=== PATIENT | male | born 1990 | race Caucasian/White ===

== ENCOUNTER 2019-01-06 13:48 | Emergency (ER) | payer BC, OTHER ==
--- NOTE | 2019-01-06 14:32 | ER ---
Nurse's Notes [facility] Name: Kirk Rockwell Age: 28 yrs Sex: Male : 1990 Arrival Date: 01/06/2019 Time: 13:48 Bed 16 Private MD: Diagnosis: Unspecified internal derangement of right knee-acl;Effusion, right knee Presentation: 01/06 13:51 Presenting complaint: Patient states: I was running and felt something in my Right knee la1 pop, I am in excruciating pain and cant walk on it now. Transition of care: patient was not received from another setting of care. Onset of symptoms was January 06, 2019. Risk Assessment: Do you want to hurt yourself or someone else? Patient reports no desire to harm self or others. Initial Sepsis Screen: Does the patient meet any 2 criteria? No. Patient's initial sepsis screen is negative. Does the patient have a suspected source of infection? No. Patient's initial sepsis screen is negative. Care prior to arrival: None. 13:51 Method Of Arrival: Wheelchair la1 13:51 Acuity: STEVEN 4 la1 Historical: - Allergies: 13:52 No Known Allergies; la1 - PMHx: 13:52 None; la1 - Immunization history:: Adult Immunizations up to date. - Social history:: Smoking status: Patient/guardian denies using tobacco. - Ebola Screening: : No symptoms or risks identified at this time. - Family history:: not pertinent. Screenin:37 Abuse screen: Denies threats or abuse. Denies injuries from another. Nutritional aj screening: No deficits noted. Tuberculosis screening: No symptoms or risk factors identified. Fall Risk None identified. Assessment: 14:37 General: Appears in no apparent distress. uncomfortable, Behavior is calm, cooperative, aj appropriate for age. Pain: Complains of pain in right knee. Neuro: Level of Consciousness is awake, alert, obeys commands, Oriented to person, place, time, situation, Appropriate for age. Respiratory: Airway is patent Respiratory effort is even, unlabored, Respiratory pattern is regular, symmetrical. Derm: Skin is intact, is healthy with good turgor, Skin is pink, warm \T\ dry. normal. Musculoskeletal: Reports pain in right knee. Vital Signs: 13:52 BP 127 / 72; Pulse 117; Resp 16; Temp 97.6; Pulse Ox 98% on R/A; Weight 86.18 kg; la1 Height 5 ft. 6 in. (167.64 cm); 15:41 BP 124 / 79; Pulse 81; Resp 16; Pulse Ox 99% on R/A; aj 13:52 Body Mass Index 30.67 (86.18 kg, 167.64 cm) la1 ED Course: 13:48 Patient arrived in ED. mr 13:52 Triage completed. la1 13:52 Arm band placed on left wrist. la1 13:54 Red Gilman MD is Attending Physician. andria 14:31 Miguel Short MD is Referral Physician. andria 14:35 Veronika You, RN is Primary Nurse. aj 14:37 Patient has correct armband on for positive identification. aj 14:37 No provider procedures requiring assistance completed. Patient did not have IV access aj during this emergency room visit. 15:11 Knee Right 3 View XRAY In Process Unspecified. EDMS Administered Medications: 14:36 Drug: Demerol 50 mg Route: IM; Site: left deltoid; aj 14:36 Drug: Phenergan 25 mg Route: IM; Site: left gluteus; aj 14:36 Drug: TORadol 60 mg Route: IM; Site: right gluteus; aj Outcome: 14:31 Discharge ordered by . andria 15:41 Discharged to home ambulatory, with crutches. aj 15:41 Condition: good 15:41 Discharge instructions given to patient, family, Instructed on discharge instructions, follow up and referral plans. medication usage, Demonstrated understanding of instructions, follow-up care, medications, Prescriptions given X 2. 15:42 Patient left the ED. aj Signatures: Dispatcher [employer] EDMS Veronika You, RN Red Ghosh MD MD cha Rivera, Mary mr Attema, Lee, RN RN la1
--- NOTE | 2019-01-06 14:32 | EDPHYS ---
Physician Documentation [facility] Name: Kirk Rockwell Age: 28 yrs Sex: Male : 1990 Arrival Date: 01/06/2019 Time: 13:48 Bed 16 Private MD: ED Physician Red Gilman HPI: 01/06 14:12 This 28 yrs old Male presents to ER via Wheelchair with complaints of Knee andria Pain. 14:12 The patient presents with decreased range of motion, pain, swelling, tenderness. The andria complaints affect the right knee. Context: The problem was sustained outdoors. Onset: The symptoms/episode began/occurred just prior to arrival. Modifying factors: The symptoms are alleviated by elevating leg, remaining still, the symptoms are aggravated by movement, weight bearing. Associated signs and symptoms: The patient has no apparent associated signs or symptoms. Severity of symptoms: At their worst the symptoms were moderate, in the emergency department the symptoms are unchanged. Historical: - Allergies: 13:52 No Known Allergies; la1 - PMHx: 13:52 None; la1 - Immunization history:: Adult Immunizations up to date. - Social history:: Smoking status: Patient/guardian denies using tobacco. - Ebola Screening: : No symptoms or risks identified at this time. - Family history:: not pertinent. ROS: 14:12 Constitutional: Negative for fever, chills, and weight loss, Eyes: Negative for injury, andria pain, redness, and discharge, ENT: Negative for injury, pain, and discharge, Neck: Negative for injury, pain, and swelling, Cardiovascular: Negative for chest pain, palpitations, and edema, Respiratory: Negative for shortness of breath, cough, wheezing, and pleuritic chest pain, Abdomen/GI: Negative for abdominal pain, nausea, vomiting, diarrhea, and constipation, Back: Negative for injury and pain, : Negative for injury, bleeding, discharge, and swelling, Skin: Negative for injury, rash, and discoloration, Neuro: Negative for headache, weakness, numbness, tingling, and seizure, Psych: Negative for depression, anxiety, suicide ideation, homicidal ideation, and hallucinations, Allergy/Immunology: Negative for hives, rash, and allergies, Endocrine: Negative for neck swelling, polydipsia, polyuria, polyphagia, and marked weight changes, Hematologic/Lymphatic: Negative for swollen nodes, abnormal bleeding, and unusual bruising. 14:12 MS/extremity: Positive for decreased range of motion, pain, swelling, tenderness, of the right knee. Exam: 14:12 Constitutional: This is a well developed, well nourished patient who is awake, alert, andria and in no acute distress. Head/Face: Normocephalic, atraumatic. Eyes: Pupils equal round and reactive to light, extra-ocular motions intact. Lids and lashes normal. Conjunctiva and sclera are non-icteric and not injected. Cornea within normal limits. Periorbital areas with no swelling, redness, or edema. ENT: Nares patent. No nasal discharge, no septal abnormalities noted. Tympanic membranes are normal and external auditory canals are clear. Oropharynx with no redness, swelling, or masses, exudates, or evidence of obstruction, uvula midline. Mucous membranes moist. Neck: Trachea midline, no thyromegaly or masses palpated, and no cervical lymphadenopathy. Supple, full range of motion without nuchal rigidity, or vertebral point tenderness. No Meningismus. Chest/axilla: Normal chest wall appearance and motion. Nontender with no deformity. No lesions are appreciated. Cardiovascular: Regular rate and rhythm with a normal S1 and S2. No gallops, murmurs, or rubs. Normal PMI, no JVD. No pulse deficits. Respiratory: Lungs have equal breath sounds bilaterally, clear to auscultation and percussion. No rales, rhonchi or wheezes noted. No increased work of breathing, no retractions or nasal flaring. Abdomen/GI: Soft, non-tender, with normal bowel sounds. No distension or tympany. No guarding or rebound. No evidence of tenderness throughout. Back: No spinal tenderness. No costovertebral tenderness. Full range of motion. Male : Normal genitalia with no discharge or lesions. Skin: Warm, dry with normal turgor. Normal color with no rashes, no lesions, and no evidence of cellulitis. Neuro: Awake and alert, GCS 15, oriented to person, place, time, and situation. Cranial nerves II-XII grossly intact. Motor strength 5/5 in all extremities. Sensory grossly intact. Cerebellar exam normal. Normal gait. Psych: Awake, alert, with orientation to person, place and time. Behavior, mood, and affect are within normal limits. 14:12 Musculoskeletal/extremity: ROM: intact in all extremities, Circulation is intact in all extremities. Sensation intact. Compartment Syndrome exam of affected extremity: is normal. severe pain, DVT Exam: negative Homans' sign noted on exam, no appreciated bluish discoloration, no erythema, no increased warmth, pain, swelling, tenderness. Vital Signs: 13:52 BP 127 / 72; Pulse 117; Resp 16; Temp 97.6; Pulse Ox 98% on R/A; Weight 86.18 kg; la1 Height 5 ft. 6 in. (167.64 cm); 15:41 BP 124 / 79; Pulse 81; Resp 16; Pulse Ox 99% on R/A; aj 13:52 Body Mass Index 30.67 (86.18 kg, 167.64 cm) [facility] MDM: 13:54 Patient medically screened. [facility] 14:15 Data reviewed: vital signs, nurses notes, radiologic studies, plain films. [facility] 01/06 13:53 Order name: Knee Right 3 View XRAY [facility] 01/06 14:11 Order name: Knee Immobilizer [facility] 01/06 14:11 Order name: Crutches [facility] 01/06 14:11 Order name: Ice pack; Complete Time: 14:36 [facility] Administered Medications: 14:36 Drug: Demerol 50 mg Route: IM; Site: left deltoid; aj 14:36 Drug: Phenergan 25 mg Route: IM; Site: left gluteus; aj 14:36 Drug: TORadol 60 mg Route: IM; Site: right gluteus; aj Disposition: 01/06/19 14:31 Discharged to Home. Impression: Unspecified internal derangement of right knee - acl, Effusion, right knee. - Condition is Stable. - Discharge Instructions: Knee Effusion, Knee Pain, Knee Effusion, [id number], Knee Pain, [id number]. - Prescriptions for Ibuprofen 600 mg Oral Tablet - take 1 tablet by ORAL route every 8 hours As needed take with food; 21 tablet. Tylenol- Codeine #3 300-30 mg Oral Tablet - take 2 tablet by ORAL route every 6 hours As needed; 30 tablet. - Medication Reconciliation Form, Thank You Letter, Antibiotic Education, Prescription Opioid Use form. - Follow up: Private Physician; When: 2 - 3 days; Reason: Recheck today's complaints, Continuance of care, Re-evaluation by your physician. Follow up: Miguel Short; When: 2 - 3 days; Reason: Recheck today's complaints, Re-evaluation by your physician. - Problem is new. - Symptoms have improved. Signatures: Dispatcher [employer] EDVeronika Green, RN Red Ghosh MD MD cha Attema, Lee RN RN la1 Corrections: (The following items were deleted from the chart) 15:42 14:31 01/06/2019 14:31 Discharged to Home. Impression: Unspecified internal derangement aj of right knee - acl; Effusion, right knee. Condition is Stable. Discharge Instructions: Knee Effusion, Knee Effusion, [id number], Knee Pain, Knee Pain, [id number]. Prescriptions for Ibuprofen 600 mg Oral Tablet - take 1 tablet by ORAL route every 8 hours As needed take with food; 21 tablet, Tylenol-Codeine #3 300-30 mg Oral Tablet - take 2 tablet by ORAL route every 6 hours As needed; 30 tablet. and Forms are Medication Reconciliation Form, Thank You Letter, Antibiotic Education, Prescription Opioid Use. Follow up: Private Physician; When: 2 - 3 days; Reason: Recheck today's complaints, Continuance of care, Re-evaluation by your physician. Follow up: Miguel Short; When: 2 - 3 days; Reason: Recheck today's complaints, Re-evaluation by your physician. Problem is new. Symptoms have improved. andria
[2019-01-06] MEDS ORDERED: PROMETHAZINE 25 MG/ML VIAL ONE (14:42)
[2019-01-06] MEDS ORDERED: MEPERIDINE HCL 50 MG/ML AMP ONE (14:42)
[2019-01-06] MEDS ORDERED: KETOROLAC 30 MG/ML INJ ONE (14:42)
--- NOTE | 2019-01-06 15:27 | RAD REPORT ---
EXAM DESCRIPTION: RAD - Knee Right 3 View - 01/06/2019 3:16 pm CLINICAL HISTORY: Knee pain following running injury COMPARISON: None. FINDINGS: No fracture, dislocation or periosteal reaction.Moderate joint effusion seen No joint spac e narrowing. No foreign body or other soft tissue abnormality. IMPRESSION: Joint effusion with no acute bone finding. Clinical concerns for internal derangement or occult bony injury could be further assessed with MR im aging.
== END 2019-01-06 15:42 | disposition home or self-care (01) ==
LOC: ER 13:48
DX: M23.91 Unspecified internal derangement of right knee (principal); M25.461 Effusion, right knee
CPT/HCPCS: 96372; 99283; J2175; J2550